=== PATIENT | male | born 1985 | race Caucasian/White ===

== ENCOUNTER 2018-01-03 11:53 | Inpatient (IN) | payer OTHER ==
[2018-01-03 13:39] VITALS: BMI 26.7
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
[2018-01-03] MEDS ORDERED: IBUPROFEN 400 MG TABLET (FP) PO PRN (14:03)
[2018-01-03] MEDS ORDERED: MAGNESIUM HYDROX 2400MG/30ML ORAL SUSPENSION 30 ML CUP PO PRN (14:03)
[2018-01-03] MEDS ORDERED: NICOTINE POLACRILEX 2 MG GUM BUC PRN (14:03)
[2018-01-03] MEDS ORDERED: MENTHOL/PHENOL 1 EACH UD MM PRN (14:03)
[2018-01-03] MEDS ORDERED: guaiFENesin/D-METHORPHAN HB 10 ML UNIT-DOSE CUPS PO PRN (14:03)
[2018-01-03] MEDS ORDERED: P-EPHED 60MG/TRIPROLIDI 2.5MG TABLET PO PRN (14:03)
[2018-01-03] MEDS ORDERED: MAG HYDROX/AL HYDROX/SIMETH 30 ML UNIT-DOSE CUP PO PRN (14:03)
[2018-01-03] MEDS ORDERED: MAGNESIUM CITRATE 300 ML BOTTLE PO PRN (14:03)
[2018-01-03] MEDS ORDERED: chlordiazePOXIDE HCL 25 MG CAPSULE PO ONE (15:45)
[2018-01-03] MEDS: chlordiazePOXIDE HCL 25 MG CAPSULE PO PRN (18:25)
[2018-01-03] MEDS: chlordiazePOXIDE HCL 25 MG CAPSULE PO SCH (22:14)
[2018-01-03] MEDS: MELATONIN 5 MG TABLETS PO PRN (22:14)
[2018-01-03] MEDS: THIAMINE HCL 100 MG TABLET (FP) PO SCH (22:14)
[2018-01-03 23:12] LABS: URINE APPEARANCE SLCLOUDY; URINE BILIRUBIN NEGATIVE (<2.0 mg/dL); URINE COLOR AMBER; URINE GLUCOSE (UA) NEGATIVE (NEGATIVE); URINE KETONE TRACE (NEGATIVE); URINE LEUK ESTERASE TRACE (NEGATIVE); URINE NITRITE NEGATIVE (NEGATIVE); URINE PROTEIN 1+ (NEGATIVE)
[2018-01-03 23:28] LABS: CALCIUM OXALATE CRYSTALS FEW /hpf (NONE SEEN); EPI CELLS RARE /HPF (FEW); URINE HYALINE CAST 4 /lpf; URINE MUCUS MANY
[2018-01-04] MEDS: chlordiazePOXIDE HCL 25 MG CAPSULE PO SCH ×3 (05:24→17:04)
[2018-01-04] MEDS ORDERED: METHADONE HCL 10 MG TABLET PO SCH (07:30)
[2018-01-04] MEDS ORDERED: METHADONE HCL 5 MG TABLET ONE (08:44)
[2018-01-04] MEDS ORDERED: METHADONE HCL 40 MG DISPERSABLE TABLET ONE (08:44)
[2018-01-04] MEDS: METHADONE PO SCH (08:58)
[2018-01-04] MEDS: PRENATAL VITAMINS W/ FOLIC ACID TABLET (FP) PO SCH (10:08)
[2018-01-04 10:38] LABS: HEMATOCRIT 39.9 % (35.4-49); HEMOGLOBIN 13.6 GM/dL (11.7-16.9); MCH 29.2 pg (25.7-33.7); MCHC 34.2 g/dl (32.0-35.9); MEAN CELL VOLUME 85.4 fl (80-96); MEAN PLT VOLUME 10.8 fl (7.5-11.1); PLATELET COUNT 174 K/MM3 (134-434); RBC 4.67 M/mm3 (4.00-5.60); RDW 13.7 % (11.9-15.9); WHITE BLOOD COUNT 5.1 K/mm3 (4.0-10.0)
[2018-01-04 10:43] LABS: ALBUMIN 3.2 g/dl (3.4-5.0); ALK PHOS 67 U/L (45-117); ANION GAP 4 MMOL/L (8-16); BILIRUBIN,TOTAL 0.2 mg/dL (0.2-1); BLOOD UREA NITROGEN 7 mg/dL (7-18); CALCIUM 8.6 mg/dL (8.5-10.1); CHLORIDE 105 mmol/L (98-107); CO2 33 mmol/L (21-32); CREATININE 0.8 mg/dL (0.55-1.3); GLUCOSE,RANDOM 89 mg/dL (74-106); SGOT/AST 21 U/L (15-37); SGPT/ALT 28 U/L (13-61); SODIUM 142 mmol/L (136-145); TOT PROT 6.2 g/dl (6.4-8.2)
[2018-01-04] MEDS: chlordiazePOXIDE HCL 25 MG CAPSULE PO PRN (12:40)
--- NOTE | 2018-01-04 14:58 | PN ---
[facility] CIWA - CIWA Score Nausea/Vomitin Muscle Tremors: 4-Moderate,w/Arms Extend Anxiety: 4-Mod. Anxious/Guarded Agitation: 3 Paroxysmal Sweats: 3 Orientation: 0-Oriented Tacttile Disturbances: 0-None Auditory Disturbances: 0-None Visual Disturbances: 0-None Headache: 0-None Present CIWA-Ar Total Score: 17 S Progress Note (SOAP) Subjective: Sweating, irritable, interrupted sleep Objective: 01/04/18 14:54 Last Vital Signs Temp Pulse Resp BP Pulse Ox 97.7 F 68 18 94/61 01/04/18 13:57 01/04/18 13:57 01/04/18 13:57 01/04/18 13:57 Hypotension noted Laboratory Tests 01/03/18 01/04/18 01/04/18 16:09 07:00 07:00 WBC 5.1 RBC 4.67 Hgb 13.6 Hct 39.9 MCV 85.4 MCH 29.2 MCHC 34.2 RDW 13.7 Plt Count 174 MPV 10.8 Sodium 142 Potassium 4.0 Chloride 105 Carbon Dioxide 33 H Anion Gap 4 L BUN 7 Creatinine 0.8 Creat Clearance w eGFR > 60 Random Glucose 89 Calcium 8.6 Total Bilirubin 0.2 AST 21 ALT 28 Alkaline Phosphatase 67 Total Protein 6.2 L Albumin 3.2 L Urine Color Nicole Urine Appearance Slcloudy Urine pH 5.0 Ur Specific [place] 1.025 Urine Protein 1+ H Urine Glucose (UA) Negative Urine Ketones Trace H Urine Blood Negative Urine Nitrite Negative Urine Bilirubin Negative Urine Urobilinogen 2.0 Ur Leukocyte Esterase Trace Urine WBC (Auto) None Urine RBC (Auto) None Ur Epithelial Cells Rare Calcium Oxalate Crystal Few Hyaline Casts 4 Urine Mucus Many RPR Titer 01/04/18 07:00 WBC RBC Hgb Hct MCV MCH MCHC RDW Plt Count MPV Sodium Potassium Chloride Carbon Dioxide Anion Gap BUN Creatinine Creat Clearance w eGFR Random Glucose Calcium Total Bilirubin AST ALT Alkaline Phosphatase Total Protein Albumin Urine Color Urine Appearance Urine pH Ur Specific [place] Urine Protein Urine Glucose (UA) Urine Ketones Urine Blood Urine Nitrite Urine Bilirubin Urine Urobilinogen Ur Leukocyte Esterase Urine WBC (Auto) Urine RBC (Auto) Ur Epithelial Cells Calcium Oxalate Crystal Hyaline Casts Urine Mucus RPR Titer Nonreactive Labs reviewed: abnormal UA Assessment: 01/04/18 14:56 Withdrawal symptoms Noted with hypotension and abnormal UA Plan: Continue detox Hypotension: asymptomatic, encouraged PO water intake Abnormal UA: encouraged PO water intake, repeat UA
[2018-01-04] MEDS: chlordiazePOXIDE HCL 10 MG CAPSULE PO SCH (22:16)
[2018-01-04] MEDS: THIAMINE HCL 100 MG TABLET (FP) PO SCH (22:16)
[2018-01-04] MEDS: MELATONIN 5 MG TABLETS PO PRN (22:17)
[2018-01-05] MEDS ORDERED: METHADONE HCL 5 MG TABLET ONE (04:28)
[2018-01-05] MEDS ORDERED: METHADONE HCL 40 MG DISPERSABLE TABLET ONE (04:28)
[2018-01-05] MEDS: chlordiazePOXIDE HCL 10 MG CAPSULE PO SCH ×4 (05:58→22:21)
[2018-01-05] MEDS: METHADONE PO SCH (05:59)
[2018-01-05] MEDS: PRENATAL VITAMINS W/ FOLIC ACID TABLET (FP) PO SCH (10:31)
[2018-01-05] MEDS: chlordiazePOXIDE HCL 25 MG CAPSULE PO PRN (10:31)
--- NOTE | 2018-01-05 14:34 | PN ---
[facility] CIWA - CIWA Score Nausea/Vomitin-No Nausea/No Vomiting Muscle Tremors: 2 Anxiety: 2 Agitation: 3 Paroxysmal Sweats: 2 Orientation: 0-Oriented Tacttile Disturbances: 2-Mild Itch/Numbness/Burn Auditory Disturbances: 0-None Visual Disturbances: 2-Mild Sensitivity Headache: 0-None Present CIWA-Ar Total Score: 13 S Progress Note (SOAP) Subjective: c/o constipation, sweats, chills, foot pain, sensitivity to light Objective: 01/05/18 14:33 Vital Signs Temperature 98.3 F 01/05/18 14:07 Pulse Rate 76 01/05/18 14:07 Respiratory Rate 20 01/05/18 14:07 Blood Pressure 102/64 01/05/18 14:07 O2 Sat by Pulse Oximetry (%) Laboratory Last Values WBC 5.1 K/mm3 (4.0-10.0) 01/04/18 07:00 RBC 4.67 M/mm3 (4.00-5.60) 01/04/18 07:00 Hgb 13.6 GM/dL (11.7-16.9) 01/04/18 07:00 Hct 39.9 % (35.4-49) 01/04/18 07:00 MCV 85.4 fl (80-96) 01/04/18 07:00 MCH 29.2 pg (25.7-33.7) 01/04/18 07:00 MCHC 34.2 g/dl (32.0-35.9) 01/04/18 07:00 RDW 13.7 % (11.9-15.9) 01/04/18 07:00 Plt Count 174 K/MM3 (134-434) 01/04/18 07:00 MPV 10.8 fl (7.5-11.1) 01/04/18 07:00 Sodium 142 mmol/L (136-145) 01/04/18 07:00 Potassium 4.0 mmol/L (3.5-5.1) 01/04/18 07:00 Chloride 105 mmol/L (98-107) 01/04/18 07:00 Carbon Dioxide 33 mmol/L (21-32) H 01/04/18 07:00 Anion Gap 4 MMOL/L (8-16) L 01/04/18 07:00 BUN 7 mg/dL (7-18) 01/04/18 07:00 Creatinine 0.8 mg/dL (0.55-1.3) 01/04/18 07:00 Creat Clearance w eGFR > 60 (>60) 01/04/18 07:00 Random Glucose 89 mg/dL (74-106) 01/04/18 07:00 Calcium 8.6 mg/dL (8.5-10.1) 01/04/18 07:00 Total Bilirubin 0.2 mg/dL (0.2-1) 01/04/18 07:00 AST 21 U/L (15-37) 01/04/18 07:00 ALT 28 U/L (13-61) 01/04/18 07:00 Alkaline Phosphatase 67 U/L (45-117) 01/04/18 07:00 Total Protein 6.2 g/dl (6.4-8.2) L 01/04/18 07:00 Albumin 3.2 g/dl (3.4-5.0) L 01/04/18 07:00 Urine Color Nicole 01/03/18 16:09 Urine Appearance Slcloudy 01/03/18 16:09 Urine pH 5.0 (5.0-8.0) 01/03/18 16:09 Ur Specific [place] 1.025 (1.010-1.035) 01/03/18 16:09 Urine Protein 1+ (NEGATIVE) H 01/03/18 16:09 Urine Glucose (UA) Negative (NEGATIVE) 01/03/18 16:09 Urine Ketones Trace (NEGATIVE) H 01/03/18 16:09 Urine Blood Negative (NEGATIVE) 01/03/18 16:09 Urine Nitrite Negative (NEGATIVE) 01/03/18 16:09 Urine Bilirubin Negative (<2.0 mg/dL) 01/03/18 16:09 Urine Urobilinogen 2.0 mg/dL (0.2-1.0) 01/03/18 16:09 Ur Leukocyte Esterase Trace (NEGATIVE) 01/03/18 16:09 Urine WBC (Auto) None /hpf (3-5) 01/03/18 16:09 Urine RBC (Auto) None /hpf (0-3) 01/03/18 16:09 Ur Epithelial Cells Rare /HPF (FEW) 01/03/18 16:09 Calcium Oxalate Crystal Few /hpf (NONE SEEN) 01/03/18 16:09 Hyaline Casts 4 /lpf 01/03/18 16:09 Urine Mucus Many 01/03/18 16:09 RPR Titer Nonreactive (NONREACTIVE) 01/04/18 07:00 Ao x 3 no distress no adventitious breath sounds full ROM ambulating in the unit Assessment: 01/05/18 14:34 withdrawal sx Plan: increase fluids continue detox continue to monitor
--- NOTE | 2018-01-05 18:49 | PN ---
BHS Progress Note Note: positive ppd,ches xray ordered on Sun01/07/18 at 0900 before discharge
[2018-01-05] MEDS: THIAMINE HCL 100 MG TABLET (FP) PO SCH (22:21)
[2018-01-05] MEDS: MELATONIN 5 MG TABLETS PO PRN (22:23)
[2018-01-06] MEDS ORDERED: METHADONE HCL 5 MG TABLET ONE (05:04)
[2018-01-06] MEDS ORDERED: METHADONE HCL 40 MG DISPERSABLE TABLET ONE (05:04)
[2018-01-06] MEDS: METHADONE PO SCH (05:55)
[2018-01-06] MEDS: chlordiazePOXIDE HCL 10 MG CAPSULE PO SCH ×4 (05:55→22:08)
[2018-01-06] MEDS: PRENATAL VITAMINS W/ FOLIC ACID TABLET (FP) PO SCH (10:24)
--- NOTE | 2018-01-06 16:31 | PN ---
BHS Progress Note (SOAP) Subjective: Sweating, interrupted sleep Objective: 01/06/18 16:30 Last Vital Signs Temp Pulse Resp BP Pulse Ox 98.0 F 69 16 105/70 01/06/18 14:18 01/06/18 14:18 01/06/18 14:18 01/06/18 14:18 Laboratory Tests 01/03/18 01/04/18 01/04/18 16:09 07:00 07:00 WBC 5.1 RBC 4.67 Hgb 13.6 Hct 39.9 MCV 85.4 MCH 29.2 MCHC 34.2 RDW 13.7 Plt Count 174 MPV 10.8 Sodium 142 Potassium 4.0 Chloride 105 Carbon Dioxide 33 H Anion Gap 4 L BUN 7 Creatinine 0.8 Creat Clearance w eGFR > 60 Random Glucose 89 Calcium 8.6 Total Bilirubin 0.2 AST 21 ALT 28 Alkaline Phosphatase 67 Total Protein 6.2 L Albumin 3.2 L Urine Color Nicole Urine Appearance Slcloudy Urine pH 5.0 Ur Specific [place] 1.025 Urine Protein 1+ H Urine Glucose (UA) Negative Urine Ketones Trace H Urine Blood Negative Urine Nitrite Negative Urine Bilirubin Negative Urine Urobilinogen 2.0 Ur Leukocyte Esterase Trace Urine WBC (Auto) None Urine RBC (Auto) None Ur Epithelial Cells Rare Calcium Oxalate Crystal Few Hyaline Casts 4 Urine Mucus Many RPR Titer 01/04/18 07:00 WBC RBC Hgb Hct MCV MCH MCHC RDW Plt Count MPV Sodium Potassium Chloride Carbon Dioxide Anion Gap BUN Creatinine Creat Clearance w eGFR Random Glucose Calcium Total Bilirubin AST ALT Alkaline Phosphatase Total Protein Albumin Urine Color Urine Appearance Urine pH Ur Specific [place] Urine Protein Urine Glucose (UA) Urine Ketones Urine Blood Urine Nitrite Urine Bilirubin Urine Urobilinogen Ur Leukocyte Esterase Urine WBC (Auto) Urine RBC (Auto) Ur Epithelial Cells Calcium Oxalate Crystal Hyaline Casts Urine Mucus RPR Titer Nonreactive Labs reviewed: abnormal UA (reordered UA for repeat but patient didn't provide specimen) Assessment: 01/06/18 16:31 Withdrawal symptoms Plan: Continue detox Encouraged PO water intake
[2018-01-06] MEDS: THIAMINE HCL 100 MG TABLET (FP) PO SCH (22:09)
[2018-01-06] MEDS: MELATONIN 5 MG TABLETS PO PRN (22:09)
[2018-01-07] MEDS ORDERED: METHADONE HCL 40 MG DISPERSABLE TABLET ONE (04:39)
[2018-01-07] MEDS ORDERED: METHADONE HCL 5 MG TABLET ONE (04:40)
[2018-01-07] MEDS: chlordiazePOXIDE HCL 10 MG CAPSULE PO SCH ×4 (05:23→22:16)
[2018-01-07] MEDS: METHADONE PO SCH (05:23)
[2018-01-07] MEDS: PRENATAL VITAMINS W/ FOLIC ACID TABLET (FP) PO SCH (10:55)
[2018-01-07 14:27] LABS: URINE APPEARANCE CLEAR; URINE BILIRUBIN NEGATIVE (<2.0 mg/dL); URINE COLOR LTYELLOW; URINE GLUCOSE (UA) NEGATIVE (NEGATIVE); URINE KETONE NEGATIVE (NEGATIVE); URINE LEUK ESTERASE TRACE (NEGATIVE); URINE NITRITE NEGATIVE (NEGATIVE); URINE PROTEIN NEGATIVE (NEGATIVE); URINE UROBILINOGEN NEGATIVE mg/dL (0.2-1.0)
--- NOTE | 2018-01-07 14:39 | PN ---
BHS Progress Note (SOAP) Subjective: Sweating, irritation to light and sound as per patient, interrupted sleep, poor appetite Objective: 01/07/18 14:35 Last Vital Signs Temp Pulse Resp BP Pulse Ox 98 F 74 20 93/55 L 01/07/18 13:38 01/07/18 13:38 01/07/18 13:38 01/07/18 13:38 Hypotension (b/p 93/55) Laboratory Tests 01/03/18 01/04/18 01/04/18 16:09 07:00 07:00 WBC 5.1 RBC 4.67 Hgb 13.6 Hct 39.9 MCV 85.4 MCH 29.2 MCHC 34.2 RDW 13.7 Plt Count 174 MPV 10.8 Sodium 142 Potassium 4.0 Chloride 105 Carbon Dioxide 33 H Anion Gap 4 L BUN 7 Creatinine 0.8 Creat Clearance w eGFR > 60 Random Glucose 89 Calcium 8.6 Total Bilirubin 0.2 AST 21 ALT 28 Alkaline Phosphatase 67 Total Protein 6.2 L Albumin 3.2 L Urine Color Nicole Urine Appearance Slcloudy Urine pH 5.0 Ur Specific [place] 1.025 Urine Protein 1+ H Urine Glucose (UA) Negative Urine Ketones Trace H Urine Blood Negative Urine Nitrite Negative Urine Bilirubin Negative Urine Urobilinogen 2.0 Ur Leukocyte Esterase Trace Urine WBC (Auto) None Urine RBC (Auto) None Ur Epithelial Cells Rare Calcium Oxalate Crystal Few Hyaline Casts 4 Urine Mucus Many RPR Titer 01/04/18 01/06/18 07:00 12:25 WBC RBC Hgb Hct MCV MCH MCHC RDW Plt Count MPV Sodium Potassium Chloride Carbon Dioxide Anion Gap BUN Creatinine Creat Clearance w eGFR Random Glucose Calcium Total Bilirubin AST ALT Alkaline Phosphatase Total Protein Albumin Urine Color Ltyellow Urine Appearance Clear Urine pH 6.0 Ur Specific [place] 1.014 Urine Protein Negative Urine Glucose (UA) Negative Urine Ketones Negative Urine Blood Negative Urine Nitrite Negative Urine Bilirubin Negative Urine Urobilinogen Negative Ur Leukocyte Esterase Trace Urine WBC (Auto) <1 Urine RBC (Auto) <1 Ur Epithelial Cells Calcium Oxalate Crystal Hyaline Casts Urine Mucus RPR Titer Nonreactive Labs reviewed Assessment: 01/07/18 14:36 Withdrawal symptoms Noted with hypotension Plan: Continue detox Hypotension: asymptomatic, encouraged PO water intake
[2018-01-07] MEDS: MELATONIN 5 MG TABLETS PO PRN (22:16)
[2018-01-07] MEDS: THIAMINE HCL 100 MG TABLET (FP) PO SCH (22:16)
[2018-01-08] MEDS ORDERED: METHADONE HCL 5 MG TABLET ONE (04:12)
[2018-01-08] MEDS ORDERED: METHADONE HCL 40 MG DISPERSABLE TABLET ONE (04:12)
[2018-01-08] MEDS: METHADONE PO SCH (05:39)
[2018-01-08] MEDS: chlordiazePOXIDE HCL 10 MG CAPSULE PO SCH ×2 (05:39→10:28)
[2018-01-08] MEDS: PRENATAL VITAMINS W/ FOLIC ACID TABLET (FP) PO SCH (10:27)
--- NOTE | 2018-01-08 11:46 | DS ---
[facility] Detox Discharge Summary Admission Date: 01/03/18 Discharge Date: 01/08/18 - History Present History: Opioid Dependence, Sedative Dependence, MMTP Additional Comments: Patient scheduled for discharge today. As per patient, he was told by his counselor that he will be admitted to [facility] rehab today (if bed available) . Otherwise, patient will follow up at outpatient program. Pertinent Past History: Nicotine dependence Benzo related seizure disorder Sedative dependence COPD Anxiety Opioid dependence on agonist - Physical Exam Results Vital Signs: Vital Signs Temperature 97 F L 01/08/18 09:10 Pulse Rate 73 01/08/18 09:10 Respiratory Rate 20 01/08/18 09:10 Blood Pressure 108/64 01/08/18 09:10 O2 Sat by Pulse Oximetry (%) Pertinent Admission Physical Exam Findings: Withdrawal symptoms Laboratory Tests 01/03/18 01/04/18 01/04/18 16:09 07:00 07:00 WBC 5.1 RBC 4.67 Hgb 13.6 Hct 39.9 MCV 85.4 MCH 29.2 MCHC 34.2 RDW 13.7 Plt Count 174 MPV 10.8 Sodium 142 Potassium 4.0 Chloride 105 Carbon Dioxide 33 H Anion Gap 4 L BUN 7 Creatinine 0.8 Creat Clearance w eGFR > 60 Random Glucose 89 Calcium 8.6 Total Bilirubin 0.2 AST 21 ALT 28 Alkaline Phosphatase 67 Total Protein 6.2 L Albumin 3.2 L Urine Color Nicole Urine Appearance Slcloudy Urine pH 5.0 Ur Specific [place] 1.025 Urine Protein 1+ H Urine Glucose (UA) Negative Urine Ketones Trace H Urine Blood Negative Urine Nitrite Negative Urine Bilirubin Negative Urine Urobilinogen 2.0 Ur Leukocyte Esterase Trace Urine WBC (Auto) None Urine RBC (Auto) None Ur Epithelial Cells Rare Calcium Oxalate Crystal Few Hyaline Casts 4 Urine Mucus Many RPR Titer 01/04/18 01/06/18 07:00 12:25 WBC RBC Hgb Hct MCV MCH MCHC RDW Plt Count MPV Sodium Potassium Chloride Carbon Dioxide Anion Gap BUN Creatinine Creat Clearance w eGFR Random Glucose Calcium Total Bilirubin AST ALT Alkaline Phosphatase Total Protein Albumin Urine Color Ltyellow Urine Appearance Clear Urine pH 6.0 Ur Specific [place] 1.014 Urine Protein Negative Urine Glucose (UA) Negative Urine Ketones Negative Urine Blood Negative Urine Nitrite Negative Urine Bilirubin Negative Urine Urobilinogen Negative Ur Leukocyte Esterase Trace Urine WBC (Auto) <1 Urine RBC (Auto) <1 Ur Epithelial Cells Calcium Oxalate Crystal Hyaline Casts Urine Mucus RPR Titer Nonreactive Labs reviewed - Treatment Hospital Course: Detox Protocol Followed, Detoxed Safely, Responded well, Discharged Condition Good, Rehab Referral Accepted - Medication Discharge Medications: Ambulatory Orders NK [No Known Home Medication] 01/03/18 - Diagnosis (1) Seizure Current Visit: Yes Status: Chronic (2) COPD (chronic obstructive pulmonary disease) Current Visit: Yes Status: Chronic (3) Anxiety Current Visit: Yes Status: Chronic (4) Nicotine dependence Current Visit: Yes Status: Chronic (5) Opioid dependence on agonist therapy Current Visit: Yes Status: Acute (6) Sedative withdrawal Current Visit: Yes Status: Acute - AMA Did Patient Leave Against Medical Advice: No (F/U with your PCP within 1-2 weeks )
[2018-01-08 13:09] VITALS: BP 101/68; PULSE 82; TEMP 96.6
== END 2018-01-08 13:10 | disposition other institution (70) | DRG 773 ==
LOC: YASAS 11:53 → Y3N 15:11
PROC: HZ2ZZZZ Detoxification Services for Substance Abuse Treatment (ICD-10-PCS; principal; 2018-01-03)
DX: F13.230 Sedative, hypnotic or anxiolytic dependence with withdrawal, uncomplicated (principal); F11.20 Opioid dependence, uncomplicated; F17.210 Nicotine dependence, cigarettes, uncomplicated; F41.9 Anxiety disorder, unspecified; J44.9 Chronic obstructive pulmonary disease, unspecified; I95.9 Hypotension, unspecified; R56.9 Unspecified convulsions; R82.90 Unspecified abnormal findings in urine
CPT/HCPCS: 36415; 71045-TC-FY; 80053; 81003; 81015; 85027; 86593

== ENCOUNTER 2018-01-08 13:13 | Inpatient (IN) | payer OTHER ==
[2018-01-08 13:49] VITALS: BMI 27.0
[2018-01-08] MEDS ORDERED: MENTHOL/PHENOL 1 EACH UD MM PRN (14:18)
[2018-01-08] MEDS ORDERED: NICOTINE POLACRILEX 2 MG GUM BUC PRN (14:18)
[2018-01-08] MEDS ORDERED: IBUPROFEN 400 MG TABLET (FP) PO PRN (14:18)
[2018-01-08] MEDS ORDERED: MAGNESIUM CITRATE 300 ML BOTTLE PO PRN (14:18)
[2018-01-08] MEDS ORDERED: MAG HYDROX/AL HYDROX/SIMETH 30 ML UNIT-DOSE CUP PO PRN (14:18)
[2018-01-08] MEDS ORDERED: LOPERAMIDE HCL 2 MG CAPSULE PO PRN (14:18)
[2018-01-08] MEDS ORDERED: hydrOXYzine PAMOATE 25 MG CAPSULE (FP) PO PRN (14:18)
[2018-01-08] MEDS ORDERED: P-EPHED 60MG/TRIPROLIDI 2.5MG TABLET PO PRN (14:18)
[2018-01-08] MEDS ORDERED: MAGNESIUM HYDROX 2400MG/30ML ORAL SUSPENSION 30 ML CUP PO PRN (14:18)
[2018-01-08] MEDS ORDERED: guaiFENesin/D-METHORPHAN HB 10 ML UNIT-DOSE CUPS PO PRN (14:18)
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
[2018-01-08] MEDS ORDERED: SUVOREXANT 10 MG TABLET PO PRN (22:00)
[2018-01-08] MEDS ORDERED: MELATONIN 5 MG TABLETS PO PRN (22:00)
[2018-01-08] MEDS: THIAMINE HCL 100 MG TABLET (FP) PO SCH (22:05)
[2018-01-09] MEDS ORDERED: METHADONE HCL 40 MG DISPERSABLE TABLET ONE (04:16)
[2018-01-09] MEDS ORDERED: METHADONE HCL 5 MG TABLET ONE (04:16)
[2018-01-09] MEDS ORDERED: METHADONE HCL 10 MG TABLET PO SCH (06:00)
[2018-01-09] MEDS: METHADONE PO SCH (06:09)
[2018-01-09 06:34] VITALS: TEMP 97.8
--- NOTE | 2018-01-09 10:56 | PN ---
S Progress Note Note: Patient complains about having restless leg after taking Belsomra yesterday at bedtime. Belsomra discontinued and Trazadone 100 mg po HS ordered
[2018-01-09] MEDS: PRENATAL VITAMINS W/ FOLIC ACID TABLET (FP) PO SCH (10:59)
[2018-01-09] MEDS: THIAMINE HCL 100 MG TABLET (FP) PO SCH (21:16)
[2018-01-09] MEDS: hydrOXYzine PAMOATE 50 MG CAPSULE (FP) PO PRN (21:17)
[2018-01-09] MEDS ORDERED: traZODone HCL 100 MG TABLET (FP) PO SCH (22:00)
[2018-01-10] MEDS ORDERED: METHADONE HCL 5 MG TABLET ONE (04:16)
[2018-01-10] MEDS ORDERED: METHADONE HCL 40 MG DISPERSABLE TABLET ONE (04:16)
[2018-01-10] MEDS: METHADONE PO SCH (06:07)
[2018-01-10] MEDS: hydrOXYzine PAMOATE 50 MG CAPSULE (FP) PO PRN ×2 (06:11→10:17)
[2018-01-10 06:40] VITALS: BP 100/59; PULSE 71
[2018-01-10] MEDS: PRENATAL VITAMINS W/ FOLIC ACID TABLET (FP) PO SCH (10:17)
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
[2018-01-10] MEDS ORDERED: CYCLOBENZAPRINE HCL 10 MG TABLET (FP) PO PRN (10:53)
[2018-01-10] MEDS ORDERED: DOCUSATE SODIUM 100 MG CAPSULE (FP) PO SCH (14:00)
[2018-01-10] MEDS ORDERED: CYCLOBENZAPRINE HCL 10 MG TABLET (FP) PO SCH (14:00)
--- NOTE | 2018-01-10 15:10 | EKG ---
Test Reason : Blood Pressure : / mmHG Vent. Rate : 058 BPM Atrial Rate : 058 BPM P-R Int : 138 ms QRS Dur : 076 ms QT Int : 464 ms P-R-T Axes : 031 028 018 degrees QTc Int : 455 ms SINUS BRADYCARDIA OTHERWISE NORMAL ECG WHEN COMPARED WITH ECG OF 03-JAN-2018 15:52, QT HAS LENGTHENED Confirmed by SUE VELASQUEZ MD ([id number]) on 01/10/2018 3:10:07 PM Referred By: Confirmed By:SUE VELASQUEZ MD
== END 2018-01-10 12:20 | disposition left against medical advice (07) | DRG 770 ==
LOC: YASAS 13:13 → Y3W 13:14
PROVIDERS: ADMIT Psychiatry & Neurology Psychiatry; ATTEND Psychiatry & Neurology Psychiatry
PROC: HZ42ZZZ Group Counseling for Substance Abuse Treatment, Cognitive-Behavioral (ICD-10-PCS; principal; 2018-01-08)
DX: F13.20 Sedative, hypnotic or anxiolytic dependence, uncomplicated (principal); F11.20 Opioid dependence, uncomplicated; F17.210 Nicotine dependence, cigarettes, uncomplicated; F19.280 Other psychoactive substance dependence with psychoactive substance-induced anxiety disorder; F19.282 Other psychoactive substance dependence with psychoactive substance-induced sleep disorder; J44.9 Chronic obstructive pulmonary disease, unspecified; Z86.69 Personal history of other diseases of the nervous system and sense organs
CPT/HCPCS: 93005; 93010